=== PATIENT | female | born 1990 ===

== ENCOUNTER 2017-08-11 00:02 | Inpatient (IN) | payer MEDICAID, OTHER ==
[2017-08-11] MEDS ORDERED: Sodium Chloride 0.9% 1,000 ML IV STA (00:48)
--- NOTE | 2017-08-11 01:11 | ED PDOC ---
HPI: Abdomen Time Seen by Provider: 08/11/17 00:27 Chief Complaint (Nursing): Abdominal Pain Chief Complaint (Provider): abdominal pain History Per: Patient History/Exam Limitations: no limitations Onset/Duration Of Symptoms: Hrs Current Symptoms Are (Timing): Still Present Location Of Pain/Discomfort: Epigastric Quality Of Discomfort: Burning, "Pain" Additional History Per: Patient Additional Complaint(s): 27 y/o female presents with epigastric abdominal pain x 14 hours. Patient states she took two Ibuprofem 600mg tablets in the morning for chronic back pain on an empty stomach, and shortly after smita developed "burning" pain to upper abdomen, with associated multiple nonbloody/nonbilious vomiting episodes. Denies fever, chest pain, shortness of breath, palpitations, changes in bowel movements, urinary symptoms. Past Medical History Reviewed: Historical Data, Nursing Documentation, Vital Signs Vital Signs: Last Vital Signs Temp 98.5 F 08/11/17 00:11 Pulse 84 08/11/17 00:11 Resp 16 08/11/17 00:11 BP 135/87 08/11/17 00:11 Pulse Ox 98 08/11/17 04:59 - Medical History PMH: No Chronic Diseases - Surgical History Surgical History: Appendectomy, - Family History Family History: States: No Known Family Hx - Living Arrangements Living Arrangements: With Family - Home Medications Home Medications: Ambulatory Orders Medication Instructions Recorded Ondansetron ODT [Zofran ODT] 4 mg PO QID #20 odt 05/27/16 - Allergies Allergies/Adverse Reactions: Allergies Allergy/AdvReac Type Severity Reaction Status Date / Time No Known Allergies Allergy Verified 05/27/16 12:57 Review of Systems ROS Statement: Except As Marked, All Systems Reviewed And Found Negative Gastrointestinal: Positive for: Nausea, Vomiting, Abdominal Pain Physical Exam - Reviewed Nursing Documentation Reviewed: Yes Vital Signs Reviewed: Yes - Physical Exam Appears: Positive for: Well, Non-toxic, No Acute Distress Head Exam: Positive for: ATRAUMATIC, NORMAL INSPECTION, NORMOCEPHALIC Skin: Positive for: Normal Color Eye Exam: Positive for: Normal appearance ENT: Positive for: Normal ENT Inspection Cardiovascular/Chest: Positive for: Regular Rate, Rhythm Respiratory: Positive for: Normal Breath Sounds Gastrointestinal/Abdominal: Positive for: Bowel Sounds, Soft, Tenderness ( epigastric abdominal pain) Back: Positive for: Normal Inspection Extremity: Positive for: Normal ROM Neurologic/Psych: Positive for: Alert, Oriented - Laboratory Results Result Diagrams: 08/11/17 01:25 08/11/17 01:25 - ECG O2 Sat by Pulse Oximetry: 98 - Progress ED Course And Treament: labs, IV fluids, IV pepcid, IV zofran On re-eval, patient still with nausea, pain. Found to have markedly elevated LFTs, CT abd/pelvis ordered Patient unable to tolerate PO contrast, vomited. IV reglan ordered Disposition - Clinical Impression Clinical Impression: Abdominal pain, Elevated liver function tests - Disposition Disposition: Transfer of Care Disposition Time: 06:00 Condition: STABLE Forms: [employer] ([place]ican) Patient Signed Over To: Hernandez Ho Handoff Comments: pending CT
[2017-08-11 02:06] LABS: BASO % 0.2 % (0.0-2.0); EOS % 0.3 % (0.0-4.0); LYMPH # 0.9 K/uL (1.0-4.3); LYMPH % 15.4 % (20.0-40.0); MEAN CELL VOLUME 79.6 fl (81.0-99.0); MEAN CORPUSCULAR HEMOGLOBIN 25.7 pg (27.0-31.0); MEAN CORPUSCULAR HGB CONC 32.3 g/dL (33.0-37.0); MEAN PLATELET VOLUME 8.2 fl (7.2-11.7); MONO # 0.2 K/uL (0.0-0.8); NEUT # 4.7 K/uL (1.8-7.0); NEUT % 80.1 % (50.0-75.0); RBC 4.65 Mil/uL (3.80-5.20); RED CELL DISTRIBUTION WIDTH 14.9 % (11.5-14.5); WHITE BLOOD COUNT 5.9 K/uL (4.8-10.8)
[2017-08-11 02:11] LABS: SQUAMOUS EPITHIAL 6 /hpf (0-5); URINE BACTERIA RARE (<OCC); URINE BILIRUBIN NEGATIVE (NEGATIVE); URINE BLOOD SMALL (NEGATIVE); URINE CLARITY SLIGHTY-CLOUDY (Clear); URINE COLOR AMBER (YELLOW); URINE GLUCOSE (UA) NEG (Normal); URINE LEUKOCYTE ESTERASE NEG Leu/uL (Negative); URINE NITRATE NEGATIVE (NEGATIVE); URINE PROTEIN 100 mg/dL (NEGATIVE)
[2017-08-11 02:28] LABS: ALB/GLOB RATIO 1.4 (1.0-2.1); ALBUMIN 4.8 g/dL (3.5-5.0); BLOOD UREA NITROGEN 18 mg/dl (7-17); CALCIUM 9.6 mg/dL (8.4-10.2); GFR AFRICAN-AMERICAN > 60; GFR NON-AFRICAN AMERICAN > 60; LIPASE 159 U/L (23-300)
[2017-08-11 02:45] LABS: ALT/SGPT 1357 U/L (9-52)
[2017-08-11] MEDS ORDERED: Iohexol 240 (50 ml) PO ONE (03:01)
[2017-08-11 03:03] LABS: AST/SGOT 1791 U/L (14-36)
[2017-08-11] MEDS ORDERED: Iohexol 240 (50 ml) ONE (03:25)
[2017-08-11 04:13] LABS: ACETAMINOPHEN < 10.0 ug/ml (10.0-30.0); SALICYLATE < 1.0 mg/dl
[2017-08-11] MEDS ORDERED: Iohexol 300 100 ML IJ ONE (05:26)
[2017-08-11] MEDS ORDERED: Sodium Chloride 0.9% 50 ML IV ONE (05:27)
--- NOTE | 2017-08-11 06:29 | ED PDOC ---
- Laboratory Results Result Diagrams: 08/11/17 01:25 08/11/17 01:25 - ECG O2 Sat by Pulse Oximetry: 98 (RA) Pulse Ox Interpretation: Normal Medical Decision Making Medical Decision Making: Time: 06:00 Patient is endorsed to me by Christie Andrade PA-C. Pending CT scan and reevaluation Time: 6:45 CT Abd/Pelvis: FINDINGS: Lower thorax: No acute findings. ABDOMEN: Liver: Mild intrahepatic biliary ductal dilatation No mass. Gallbladder and bile ducts: Distended and mildly thickened with calcified gallstone at the fundus.. Mild ductal dilation. No definite distal calculi observed. Pancreas: Unremarkable. No mass. No ductal dilation. Spleen: Unremarkable. No splenomegaly. Adrenals: Unremarkable. No mass. Kidneys and ureters: Right renal cyst No solid mass. No hydronephrosis. Stomach and bowel: Unremarkable. No obstruction. No mucosal thickening. Appendix: No findings to suggest acute appendicitis. PELVIS: Bladder: Unremarkable. No mass. Reproductive: Unremarkable as visualized. ABDOMEN and PELVIS: Intraperitoneal space: Trace cul-de-sac fluid No free air. No significant fluid collection. Bones/joints: No acute fracture. No dislocation. Soft tissues: Unremarkable. Vasculature: Unremarkable. No abdominal aortic aneurysm. Lymph nodes: Unremarkable. No enlarged lymph nodes. IMPRESSION: Findings suspect for cholecystitis. Further evaluation with right upper quadrant ultrasound recommended Mild biliary ductal dilatation without definite distal common bile duct calculi Time: 6:50 --Started patient on IV zosyn and ordered ultrasound --Paged Dr. Mercedes, surgery on-call, and Dr. Braxton, medicine on-call. Time: 6:[address] Braxton, who requests MRCP ordered. Patient will be admitted inpatient to Med/Surg for cholecystitis. Time: 0700 --Discussed case with surgical garment assembly supervisor. Scribe Attestation: Documented by Amanda Pitts, acting as a scribe for Hernandez Ho MD Provider Scribe Attestation: All medical record entries made by the Scribe were at my direction and personally dictated by me. I have reviewed the chart and agree that the record accurately reflects my personal performance of the history, physical exam, medical decision making, and the department course for this patient. I have also personally directed, reviewed, and agree with the discharge instructions and disposition. Disposition Counseled Patient/Family Regarding: Studies Performed - Clinical Impression Clinical Impression: Abdominal pain, Elevated liver function tests, Cholecystitis - POA Present On Arrival: None - Disposition Disposition: Admitted as In-Patient Disposition Time: 06:30 Condition: STABLE
[2017-08-11] MEDS ORDERED: Piperacillin/Tazobact 4.5 GM in Sodium Chloride 0.9% 100 ML IVPB STA (06:48)
--- NOTE | 2017-08-11 07:39 | CP.PCM.CON ---
History of Present Illness - History of Present Illness History of Present Illness: General surgery consult note for Dr. Sean Gould, PGY-1 Pt S & E at bedside. 27F w/no sig PMH consulted for abdominal pain x 1 day. Pt reports sudden onset of epigastric pain yesterday at 10am, tried Ibuprofen with minimal relief. Pain was non radiating, constant, "cramping"/"tight"- now resolved with pain medications. Admits to back pain (chronic since childbirth), emesis after eating (nbnb)- inability to tolerate food, nausea. Denies F & C, other complaints. PMH: Denies PSH: Appendectomy, All: NKDA SH: Denies tobacco, ETOH or illicit drug use. Delivered baby 2 mos ago Review of Systems - Review of Systems All systems: reviewed and no additional remarkable complaints except - Constitutional Constitutional: absent: Chills, Fever - EENT Ears: absent: Dizziness Nose/Mouth/Throat: absent: Sore Throat - Cardiovascular Cardiovascular: absent: Chest Pain - Gastrointestinal Gastrointestinal: Abdominal Pain, Nausea, Vomiting. absent: Constipation, Diarrhea - Musculoskeletal Musculoskeletal: Back Pain (chronic) - Integumentary Integumentary: absent: Rash - Neurological Neurological: absent: Headaches - Psychiatric Psychiatric: Change in Appetite Past Patient History - Past Social History Smoking Status: Heavy Smoker > 10 Cigarettes Daily - PSYCHIATRIC Hx Substance Use: No - SURGICAL HISTORY Hx Appendectomy: Yes Meds Allergies/Adverse Reactions: Allergies Allergy/AdvReac Type Severity Reaction Status Date / Time No Known Allergies Allergy Verified 05/27/16 12:57 - Medications Medications: Current Medications Piperacillin Sod/Tazobactam (Sod 4.5 gm/ Sodium Chloride) 100 mls @ 100 mls/hr IVPB STAT STA PRN Reason: Protocol Stop: 08/11/17 07:47 Last Admin: 08/11/17 07:23 Dose: 100 mls/hr Lactated Ringer's (Lactated Ringer's) 1,000 mls @ 90 mls/hr IV .[id number] [facility] Ondansetron HCl (Zofran Inj) 4 mg IVP Q6 PRN PRN Reason: Nausea/Vomiting Pantoprazole Sodium (Protonix Inj) 40 mg IVP DAILY [facility] Physical Exam - Constitutional Appears: Non-toxic, No Acute Distress - Head Exam Head Exam: ATRAUMATIC, NORMAL INSPECTION, NORMOCEPHALIC - Eye Exam Eye Exam: EOMI, Normal appearance - ENT Exam ENT Exam: Mucous Membranes Moist, Normal Exam - Neck Exam Neck exam: Positive for: Full Rom, Normal Inspection - Respiratory Exam Respiratory Exam: NORMAL BREATHING PATTERN - Cardiovascular Exam Cardiovascular Exam: REGULAR RHYTHM, +S1, +S2 - GI/Abdominal Exam GI & Abdominal Exam: Soft, Tenderness (epigastric). absent: Distended, Firm, Guarding, Rebound, Rigid - Extremities Exam Extremities exam: Positive for: normal inspection - Neurological Exam Neurological exam: Alert, CN II-XII Intact, Oriented x3 - Psychiatric Exam Psychiatric exam: Normal Affect, Normal Mood - Skin Skin Exam: Dry, Intact, Normal Color, Warm Additional comments: well healed linear transverse low abdominal scar Results - Vital Signs Recent Vital Signs: Last Vital Signs Temp 98.6 F 08/11/17 06:59 Pulse 90 08/11/17 06:59 Resp 16 08/11/17 06:59 BP 121/72 08/11/17 06:59 Pulse Ox 98 08/11/17 07:08 - Labs Result Diagrams: 08/11/17 01:25 08/11/17 01:25 Labs: Laboratory Results - last 24 hr 08/11/17 08/11/17 08/11/17 01:25 01:25 01:25 WBC 5.9 RBC 4.65 Hgb 12.0 Hct 37.0 MCV 79.6 L D MCH 25.7 L MCHC 32.3 L RDW 14.9 H Plt Count 271 MPV 8.2 Neut % (Auto) 80.1 H Lymph % (Auto) 15.[address] [place] % (Auto) 4.0 Eos % (Auto) 0.3 Baso % (Auto) 0.2 Neut # 4.7 Lymph # 0.[address] [place] # 0.2 Eos # 0.0 Baso # 0.0 Sodium 145 Potassium 3.7 Chloride 106 Carbon Dioxide 28 Anion Gap 15 BUN 18 H Creatinine 0.5 L Est GFR ( Amer) > 60 Est GFR (Non-Af Amer) > 60 Random Glucose 86 Calcium 9.6 Total Bilirubin 1.9 H AST 1791 H ALT 1357 H Alkaline Phosphatase 247 H Total Protein 8.2 Albumin 4.8 Globulin 3.4 Albumin/Globulin Ratio 1.4 Lipase 159 Urine Color Cathie Urine Clarity Slighty-cloudy Urine pH 6.0 Ur Specific [place] 1.030 Urine Protein 100 Urine Glucose (UA) Neg Urine Ketones 20 Urine Blood Small Urine Nitrate Negative Urine Bilirubin Negative Urine Urobilinogen 4.0 H Ur Leukocyte Esterase Neg Urine RBC (Auto) 5 H Urine Microscopic WBC 4 Ur Squamous Epith Cells 6 H Urine Bacteria Rare Salicylates Acetaminophen 08/11/17 03:25 WBC RBC Hgb Hct MCV MCH MCHC RDW Plt Count MPV Neut % (Auto) Lymph % (Auto) [place] % (Auto) Eos % (Auto) Baso % (Auto) Neut # Lymph # [place] # Eos # Baso # Sodium Potassium Chloride Carbon Dioxide Anion Gap BUN Creatinine Est GFR ( Amer) Est GFR (Non-Af Amer) Random Glucose Calcium Total Bilirubin AST ALT Alkaline Phosphatase Total Protein Albumin Globulin Albumin/Globulin Ratio Lipase Urine Color Urine Clarity Urine pH Ur Specific [place] Urine Protein Urine Glucose (UA) Urine Ketones Urine Blood Urine Nitrate Urine Bilirubin Urine Urobilinogen Ur Leukocyte Esterase Urine RBC (Auto) Urine Microscopic WBC Ur Squamous Epith Cells Urine Bacteria Salicylates < 1.0 Acetaminophen < 10.0 L Assessment & Plan - Assessment and Plan (Free Text) Assessment: 27F w/no sig PMH consulted for abdominal pain Plan: NPO Pain control IVF Anti-emetic Trend LFTs FU MRCP for CBD dilatation Recommend GI consult Alternative causes of transaminitis should be evaluated Further recs pending imaging studies Will JAYLEN Gould, PGY-1 - Date & Time Date: 08/11/17 Time: 07:43
[2017-08-11] MEDS: Morphine 4 MG/ML VIAL IVP PRN ×2 (10:20→18:42)
[2017-08-11] MEDS: Lactated Ringer's 1,000 ML IV SCH ×3 (10:21→21:17)
--- NOTE | 2017-08-11 10:24 | US ---
HISTORY: cholecystitis COMPARISON: None. TECHNIQUE: Sonographic evaluation of the right upper quadrant of the abdomen. FINDINGS: LIVER: Measures 12.0 cm in length. Normal echogenicity of the liver parenchyma. No mass. No intrahepatic bile duct dilatation. GALLBLADDER: Cholelithiasis and tumefactive sludge with gallbladder wall thickening/edema. Sloughing of the gallbladder wall with appearance of intraluminal membranes (image 101). Sonographic Torres's sign was elicited. COMMON BILE DUCT: Measures 6.2 mm. No stones. No dilatation. PANCREAS: Unremarkable as visualized. No mass. No ductal dilatation. RIGHT KIDNEY: Measures 10.6 x 5.2 x 4.5 cm in length. Normal echogenicity. No calculus, mass, or hydronephrosis. AORTA: No aneurysmal dilatation. IVC: Unremarkable. OTHER FINDINGS: None . IMPRESSION: Findings worrisome for gangrenous cholecystitis. Borderline dilated common bile duct. Findings conveyed to SABINA Allen by Dr. Lee at 10:20 a.m. on 08/11/2017.
--- NOTE | 2017-08-11 10:32 | MRI ---
PROCEDURE: Magnetic Resonance Cholangiopancreatography HISTORY: COMPARISON: Correlation is made to CT scan of the abdomen pelvis performed approximately 2.5 hours prior. TECHNIQUE: Multiplanar, multisequence MR images of the abdomen were obtained, including heavily T2 weighted MRCP images of the biliary system. Rotating maximum intensity projection images of the biliary system were generated. FINDINGS: MRCP: 5 millimeter distal choledocholith causing mild extrahepatic and central intrahepatic biliary ductal dilatation. LIVER: Unremarkable. GALLBLADDER: Distended with dependent cholelithiasis, wall thickening/edema and appearance of intraluminal membranes. SPLEEN: Unremarkable. PANCREAS: Unremarkable. ADRENALS: Unremarkable. KIDNEYS: Unremarkable. AORTA: No aneurysm. ASCITES: None. OTHER FINDINGS: None. IMPRESSION: Findings worrisome for gangrenous cholecystitis. Distal CBD 5 millimeter choledocholithiasis causing mild extrahepatic and central intrahepatic biliary duct dilatation. Findings conveyed to SABINA Allen by Dr. Lee at 10:20 a.m. on 08/11/2017.
--- NOTE | 2017-08-11 10:50 | CT ---
PROCEDURE: CT Abdomen and Pelvis with contrast HISTORY: abd pain, vomiting, elevated LFTs COMPARISON: None. TECHNIQUE: Contrast dose: 85 mL Omnipaque 300 Radiation dose: Total exam DLP = 254 mGy-cm. This CT exam was performed using one or more of the following dose reduction techniques: Automated exposure control, adjustment of the mA and/or kV according to patient size, and/or use of iterative reconstruction technique. FINDINGS: LOWER THORAX: Calcified granuloma in the lingula. LIVER: Unremarkable. Mild intrahepatic biliary ductal dilatation. GALLBLADDER AND BILE DUCTS: Minimal calcified cholelithiasis with gallbladder distention and wall thickening/edema. CBD at upper limits of normal measuring 6 millimeter. PANCREAS: Unremarkable. No gross lesion or ductal dilatation. SPLEEN: Unremarkable. ADRENALS: Unremarkable. No mass. KIDNEYS AND URETERS: Right midpole 1.1 centimeter cyst. No hydronephrosis. No solid mass. VASCULATURE: Unremarkable. No aortic aneurysm. BOWEL: Unremarkable. No obstruction. No gross mural thickening. APPENDIX: Prior appendectomy. PERITONEUM: Unremarkable. No free fluid. No free air. LYMPH NODES: Unremarkable. No enlarged lymph nodes. BLADDER: Unremarkable. REPRODUCTIVE: Unremarkable. BONES: No acute fracture. OTHER FINDINGS: None. IMPRESSION: Minimal calcified cholelithiasis with gallbladder distention wall thickening/edema consistent with acute cholecystitis. CBD prominence and mild central intrahepatic biliary ductal dilatation without radiopaque choledocholithiasis. MRCP can be obtained for further evaluation. Additional findings as above.
--- NOTE | 2017-08-11 11:47 | CP.PCM.HP ---
History of Present Illness - History of Present Illness History of Present Illness: 27 yr old F presented to ED with complaint of severe epigastric pain that started yesterday after she took 600mg of Ibuprofen for back pain. Patient has recent hx of 2 months ago, appendectomy 3 yrs ago and no other significant PMHx. Her epigastric pain was severe, burning and associated with multiple episodes of non-bilious, non-bloody vomiting. Denies fevers, chills, weakness, dizziness, SOB, chest pain or palpitations. Denies hx of blood disorders, GI disease or constipation nor diarrhea. PMD: none ObHx: s/p 2 months ago PMHx: none SurgHx: 2 months ago, appendectomy 3 yrs ago FMHx: non contributory SocHx: former smoker, occasional Etoh, denies drugs Meds: Ibuprofen and Percocet PRN for pain s/p Allergies: NKDA Present on Admission - Present on Admission Any Indicators Present on Admission: No History of DVT/PE: No History of Uncontrolled Diabetes: No Urinary Catheter: No Decubitus Ulcer Present: No Review of Systems - Review of Systems All systems: reviewed and no additional remarkable complaints except (for what is mentioned in the HPI) - Constitutional Constitutional: absent: Chills, Weakness - EENT Eyes: absent: Blurred Vision, Change in Vision Ears: absent: Dizziness Nose/Mouth/Throat: absent: Nasal Congestion, Nasal Discharge - Cardiovascular Cardiovascular: absent: Chest Pain, Palpitations, Syncope - Respiratory Respiratory: absent: Cough, Dyspnea - Gastrointestinal Gastrointestinal: Abdominal Pain (epigastric and umbilical region), Heartburn, Nausea, Vomiting. absent: Constipation, Diarrhea - Genitourinary Genitourinary: absent: Difficulty Urinating, Dysuria - Musculoskeletal Musculoskeletal: absent: Arthralgias - Neurological Neurological: absent: Headaches - Hematologic/Lymphatic Hematologic: absent: Easy Bleeding, Easy Bruising Past Patient History - Past Medical History & Family History Past Medical History?: No - Past Social History Smoking Status: Former Smoker - CARDIAC Hx Cardiac Disorders: No - PULMONARY Hx Respiratory Disorders: No - NEUROLOGICAL Hx Neurological Disorder: No - HEENT Hx HEENT Problems: No - RENAL Hx Chronic Kidney Disease: No - ENDOCRINE/METABOLIC Hx Endocrine Disorders: No - HEMATOLOGICAL/ONCOLOGICAL Hx Blood Disorders: No - INTEGUMENTARY Hx Dermatological Problems: No - MUSCULOSKELETAL/RHEUMATOLOGICAL Hx Falls: No - GENITOURINARY/GYNECOLOGICAL Hx Genitourinary Disorders: No - PSYCHIATRIC Hx Substance Use: No - SURGICAL HISTORY Hx Appendectomy: Yes Hx Section: Yes - ANESTHESIA Hx Anesthesia: Yes Hx Anesthesia Reactions: No Meds Allergies/Adverse Reactions: Allergies Allergy/AdvReac Type Severity Reaction Status Date / Time No Known Allergies Allergy Verified 05/27/16 12:57 Physical Exam - Constitutional Appears: Non-toxic (but appears to have abdominal discomfort) - Head Exam Head Exam: ATRAUMATIC, NORMOCEPHALIC - Eye Exam Eye Exam: EOMI, PERRL - ENT Exam ENT Exam: Mucous Membranes Moist - Neck Exam Neck exam: Positive for: Full Rom - Respiratory Exam Respiratory Exam: Clear to Auscultation Bilateral, NORMAL BREATHING PATTERN - Cardiovascular Exam Cardiovascular Exam: REGULAR RHYTHM, +S1, +S2 - GI/Abdominal Exam GI & Abdominal Exam: Normal Bowel Sounds, Soft, Tenderness (moderate tenederness to palpation in epigastric and umbilical region) - Extremities Exam Extremities exam: Positive for: full ROM. Negative for: pedal edema - Neurological Exam Neurological exam: Alert, CN II-XII Intact, Oriented x3 - Psychiatric Exam Psychiatric exam: Normal Affect, Normal Mood - Skin Skin Exam: Dry, Intact, Normal Color, Warm Results - Vital Signs Recent Vital Signs: Last Vital Signs Temp 98.4 F 08/11/17 09:50 Pulse 77 08/11/17 09:50 Resp 20 08/11/17 09:50 BP 117/77 08/11/17 09:50 Pulse Ox 97 08/11/17 09:50 - Labs Result Diagrams: 08/11/17 01:25 08/11/17 01:25 Labs: Laboratory Results - last 24 hr 08/11/17 08/11/17 08/11/17 01:25 01:25 01:25 WBC 5.9 RBC 4.65 Hgb 12.0 Hct 37.0 MCV 79.6 L D MCH 25.7 L MCHC 32.3 L RDW 14.9 H Plt Count 271 MPV 8.2 Neut % (Auto) 80.1 H Lymph % (Auto) 15.4 L [place] % (Auto) 4.0 Eos % (Auto) 0.3 Baso % (Auto) 0.2 Neut # 4.7 Lymph # 0.9 L [place] # 0.2 Eos # 0.0 Baso # 0.0 Sodium 145 Potassium 3.7 Chloride 106 Carbon Dioxide 28 Anion Gap 15 BUN 18 H Creatinine 0.5 L Est GFR ( Amer) > 60 Est GFR (Non-Af Amer) > 60 Random Glucose 86 Calcium 9.6 Total Bilirubin 1.9 H AST 1791 H ALT 1357 H Alkaline Phosphatase 247 H Total Protein 8.2 Albumin 4.8 Globulin 3.4 Albumin/Globulin Ratio 1.4 Lipase 159 Urine Color Cathie Urine Clarity Slighty-cloudy Urine pH 6.0 Ur Specific [place] 1.030 Urine Protein 100 Urine Glucose (UA) Neg Urine Ketones 20 Urine Blood Small Urine Nitrate Negative Urine Bilirubin Negative Urine Urobilinogen 4.0 H Ur Leukocyte Esterase Neg Urine RBC (Auto) 5 H Urine Microscopic WBC 4 Ur Squamous Epith Cells 6 H Urine Bacteria Rare Salicylates Acetaminophen 08/11/17 03:25 WBC RBC Hgb Hct MCV MCH MCHC RDW Plt Count MPV Neut % (Auto) Lymph % (Auto) [place] % (Auto) Eos % (Auto) Baso % (Auto) Neut # Lymph # [place] # Eos # Baso # Sodium Potassium Chloride Carbon Dioxide Anion Gap BUN Creatinine Est GFR ( Amer) Est GFR (Non-Af Amer) Random Glucose Calcium Total Bilirubin AST ALT Alkaline Phosphatase Total Protein Albumin Globulin Albumin/Globulin Ratio Lipase Urine Color Urine Clarity Urine pH Ur Specific [place] Urine Protein Urine Glucose (UA) Urine Ketones Urine Blood Urine Nitrate Urine Bilirubin Urine Urobilinogen Ur Leukocyte Esterase Urine RBC (Auto) Urine Microscopic WBC Ur Squamous Epith Cells Urine Bacteria Salicylates < 1.0 Acetaminophen < 10.0 L Assessment & Plan - Assessment and Plan (Free Text) Assessment: 27 yr old F with Abd CT findings of and MRCP findings worrisome for gangrenous cholecystitis, and CBD choledocholithiasis, with symptoms of severe abdominal pain and vomiting. 1. Abdominal pain -Abd CT findings of and MRCP findings worrisome for gangrenous cholecystitis, distal CBD 5mm choledocholithiasis causing mild extrahepatic and central intrahepatic biliary dilatation -no leukocytosis, AST 1791, ALT 1357, alk phos 247 -admit to med/surg, NPO, IV fluids, pain management -IV antibiotics -Zosyn 3.375 IV Q6 -GI consult appreciated: will follow recommendations -Surgery consult appreciated 2. DVT prophylaxis -SCD's for now-patient may go for surgery - Date & Time Date: 08/11/17 Time: 11:00
--- NOTE | 2017-08-11 13:03 | CP.PCM.CON ---
<Sohan Curtis - Last Filed: 08/11/17 15:33> History of Present Illness - History of Present Illness History of Present Illness: PGY4 Initial GI Consult Mckayla Kamara is a 27F w/ hx of recent complicated by preeclampsia who presents withe epigastric abd pain. Pt states that he pain was sudden and was initially tolerate. She then notes it progressed to sharp. It was non- radiating and she graded it a 10 out of 10. She also started to have diaphoresis and chills but denied any fever. She also had nausea and vomiting. She then proceeded to the ER for further evaluation. Her was complicated by preeclampsia and she gave 3 months ago via . She had an MRCP which revealed a possible gangrenous gallbladder and CBD stone. Pt states that her pain has significantly improved since admission. Denies any new fever, chills, or diaphoreisis. Denies any jaundice or scleral icturus. Denies any previous hx of liver problems or hepatitis. PMHx: none SurgHx: 2 months ago, appendectomy 3 yrs ago FMHx: non contributory SocHx: former smoker, occasional Etoh, denies drugs Endo Hx: None ROS: 12-point ROS conducted neg other than above Past Patient History - Past Medical History & Family History Past Medical History?: No - Past Social History Smoking Status: Former Smoker - CARDIAC Hx Cardiac Disorders: No - PULMONARY Hx Respiratory Disorders: No - NEUROLOGICAL Hx Neurological Disorder: No - HEENT Hx HEENT Problems: No - RENAL Hx Chronic Kidney Disease: No - ENDOCRINE/METABOLIC Hx Endocrine Disorders: No - HEMATOLOGICAL/ONCOLOGICAL Hx Blood Disorders: No - INTEGUMENTARY Hx Dermatological Problems: No - MUSCULOSKELETAL/RHEUMATOLOGICAL Hx Falls: No - GENITOURINARY/GYNECOLOGICAL Hx Genitourinary Disorders: No - PSYCHIATRIC Hx Substance Use: No - SURGICAL HISTORY Hx Appendectomy: Yes Hx Section: Yes - ANESTHESIA Hx Anesthesia: Yes Hx Anesthesia Reactions: No Meds Allergies/Adverse Reactions: Allergies Allergy/AdvReac Type Severity Reaction Status Date / Time No Known Allergies Allergy Verified 05/27/16 12:57 - Medications Medications: Current Medications Lactated Ringer's (Lactated Ringer's) 1,000 mls @ 90 mls/hr IV .Q11H7M [facility] Last Admin: 08/11/17 10:21 Dose: 90 mls/hr Piperacillin Sod/Tazobactam (Sod 3.375 gm/ Sodium Chloride) 100 mls @ 100 mls/ hr IVPB Q6 [facility] PRN Reason: Protocol Morphine Sulfate (Morphine) 2 mg IVP Q6 PRN PRN Reason: Pain, moderate (4-7) Last Admin: 08/11/17 10:20 Dose: 2 mg Ondansetron HCl (Zofran Inj) 4 mg IVP Q6 PRN PRN Reason: Nausea/Vomiting Pantoprazole Sodium (Protonix Inj) 40 mg IVP DAILY [facility] Physical Exam - Constitutional Appears: Well, No Acute Distress - Head Exam Head Exam: ATRAUMATIC, NORMOCEPHALIC - Eye Exam Eye Exam: Normal appearance - ENT Exam ENT Exam: Mucous Membranes Moist - Neck Exam Neck exam: Positive for: Normal Inspection - Respiratory Exam Respiratory Exam: Clear to Auscultation Bilateral, NORMAL BREATHING PATTERN. absent: Rales, Rhonchi, Wheezes, Respiratory Distress - Cardiovascular Exam Cardiovascular Exam: REGULAR RHYTHM, +S1, +S2 - GI/Abdominal Exam GI & Abdominal Exam: Normal Bowel Sounds, Soft. absent: Distended, Guarding, Organomegaly, Rigid Additional comments: scar at bikini line, stretch lr - Extremities Exam Extremities exam: Negative for: joint swelling, pedal edema - Neurological Exam Neurological exam: Alert, Oriented x3 - Psychiatric Exam Psychiatric exam: Normal Affect, Normal Mood - Skin Skin Exam: Dry, Intact, Normal Color, Warm Results - Vital Signs Recent Vital Signs: Last Vital Signs Temp 98.4 F 08/11/17 09:50 Pulse 77 08/11/17 09:50 Resp 20 08/11/17 09:50 BP 117/77 08/11/17 09:50 Pulse Ox 97 08/11/17 09:50 - Labs Result Diagrams: 08/11/17 01:25 08/11/17 01:25 Labs: Laboratory Results - last 24 hr 08/11/17 08/11/17 08/11/17 01:25 01:25 01:25 WBC 5.9 RBC 4.65 Hgb 12.0 Hct 37.0 MCV 79.6 L D MCH 25.7 L MCHC 32.3 L RDW 14.9 H Plt Count 271 MPV 8.2 Neut % (Auto) 80.1 H Lymph % (Auto) 15.4 L Wheeler % (Auto) 4.0 Eos % (Auto) 0.3 Baso % (Auto) 0.2 Neut # 4.7 Lymph # 0.9 L Wheeler # 0.2 Eos # 0.0 Baso # 0.0 Sodium 145 Potassium 3.7 Chloride 106 Carbon Dioxide 28 Anion Gap 15 BUN 18 H Creatinine 0.5 L Est GFR ( Amer) > 60 Est GFR (Non-Af Amer) > 60 Random Glucose 86 Calcium 9.6 Total Bilirubin 1.9 H AST 1791 H ALT 1357 H Alkaline Phosphatase 247 H Total Protein 8.2 Albumin 4.8 Globulin 3.4 Albumin/Globulin Ratio 1.4 Lipase 159 Urine Color Cathie Urine Clarity Slighty-cloudy Urine pH 6.0 Ur Specific [place] 1.030 Urine Protein 100 Urine Glucose (UA) Neg Urine Ketones 20 Urine Blood Small Urine Nitrate Negative Urine Bilirubin Negative Urine Urobilinogen 4.0 H Ur Leukocyte Esterase Neg Urine RBC (Auto) 5 H Urine Microscopic WBC 4 Ur Squamous Epith Cells 6 H Urine Bacteria Rare Salicylates Acetaminophen 08/11/17 03:25 WBC RBC Hgb Hct MCV MCH MCHC RDW Plt Count MPV Neut % (Auto) Lymph % (Auto) Wheeler % (Auto) Eos % (Auto) Baso % (Auto) Neut # Lymph # Wheeler # Eos # Baso # Sodium Potassium Chloride Carbon Dioxide Anion Gap BUN Creatinine Est GFR ( Amer) Est GFR (Non-Af Amer) Random Glucose Calcium Total Bilirubin AST ALT Alkaline Phosphatase Total Protein Albumin Globulin Albumin/Globulin Ratio Lipase Urine Color Urine Clarity Urine pH Ur Specific [place] Urine Protein Urine Glucose (UA) Urine Ketones Urine Blood Urine Nitrate Urine Bilirubin Urine Urobilinogen Ur Leukocyte Esterase Urine RBC (Auto) Urine Microscopic WBC Ur Squamous Epith Cells Urine Bacteria Salicylates < 1.0 Acetaminophen < 10.0 L Assessment & Plan - Assessment and Plan (Free Text) Assessment: Mckayla Kamara is a 27F s/p recent who presents to the ER with abd pain Possible Gangrenous Cholecystitis Choledocolithiasis Elevated LFTs likely 2/2 above Plan: -can start clears for now from GI standpoint -NPO after midnight -Acute Hep Panel -ERCP tomorrow AM -continue Zosyn -Surgery on board, will likely undergo lap patel -continue to trend LFTs -consent in chart D/W Dr. Joy <Rick Joy MD - Last Filed: 08/11/17 16:35> Meds - Medications Medications: Current Medications Lactated Ringer's (Lactated Ringer's) 1,000 mls @ 90 mls/hr IV .Q11H7M [facility] Last Admin: 08/11/17 10:21 Dose: 90 mls/hr Piperacillin Sod/Tazobactam (Sod 3.375 gm/ Sodium Chloride) 100 mls @ 100 mls/ hr IVPB Q6 [facility] PRN Reason: Protocol Last Admin: 08/11/17 16:27 Dose: 100 mls/hr Morphine Sulfate (Morphine) 2 mg IVP Q6 PRN PRN Reason: Pain, moderate (4-7) Last Admin: 08/11/17 10:20 Dose: 2 mg Ondansetron HCl (Zofran Inj) 4 mg IVP Q6 PRN PRN Reason: Nausea/Vomiting Last Admin: 08/11/17 14:00 Dose: 4 mg Pantoprazole Sodium (Protonix Inj) 40 mg IVP DAILY [facility] Last Admin: 08/11/17 14:00 Dose: 40 mg Results - Vital Signs Recent Vital Signs: Last Vital Signs Temp 98.4 F 08/11/17 16:19 Pulse 88 08/11/17 16:19 Resp 18 08/11/17 16:19 BP 117/74 08/11/17 16:19 Pulse Ox 98 08/11/17 16:19 - Labs Result Diagrams: 08/11/17 01:25 08/11/17 01:25 Labs: Laboratory Results - last 24 hr 08/11/17 08/11/17 08/11/17 01:25 01:25 01:25 WBC 5.9 RBC 4.65 Hgb 12.0 Hct 37.0 MCV 79.6 L D MCH 25.7 L MCHC 32.3 L RDW 14.9 H Plt Count 271 MPV 8.2 Neut % (Auto) 80.1 H Lymph % (Auto) 15.4 L Wheeler % (Auto) 4.0 Eos % (Auto) 0.3 Baso % (Auto) 0.2 Neut # 4.7 Lymph # 0.9 L Wheeler # 0.2 Eos # 0.0 Baso # 0.0 Sodium 145 Potassium 3.7 Chloride 106 Carbon Dioxide 28 Anion Gap 15 BUN 18 H Creatinine 0.5 L Est GFR ( Amer) > 60 Est GFR (Non-Af Amer) > 60 Random Glucose 86 Calcium 9.6 Total Bilirubin 1.9 H AST 1791 H ALT 1357 H Alkaline Phosphatase 247 H Total Protein 8.2 Albumin 4.8 Globulin 3.4 Albumin/Globulin Ratio 1.4 Lipase 159 Urine Color Cathie Urine Clarity Slighty-cloudy Urine pH 6.0 Ur Specific [place] 1.030 Urine Protein 100 Urine Glucose (UA) Neg Urine Ketones 20 Urine Blood Small Urine Nitrate Negative Urine Bilirubin Negative Urine Urobilinogen 4.0 H Ur Leukocyte Esterase Neg Urine RBC (Auto) 5 H Urine Microscopic WBC 4 Ur Squamous Epith Cells 6 H Urine Bacteria Rare Salicylates Acetaminophen 08/11/17 03:25 WBC RBC Hgb Hct MCV MCH MCHC RDW Plt Count MPV Neut % (Auto) Lymph % (Auto) Wheeler % (Auto) Eos % (Auto) Baso % (Auto) Neut # Lymph # Wheeler # Eos # Baso # Sodium Potassium Chloride Carbon Dioxide Anion Gap BUN Creatinine Est GFR ( Amer) Est GFR (Non-Af Amer) Random Glucose Calcium Total Bilirubin AST ALT Alkaline Phosphatase Total Protein Albumin Globulin Albumin/Globulin Ratio Lipase Urine Color Urine Clarity Urine pH Ur Specific [place] Urine Protein Urine Glucose (UA) Urine Ketones Urine Blood Urine Nitrate Urine Bilirubin Urine Urobilinogen Ur Leukocyte Esterase Urine RBC (Auto) Urine Microscopic WBC Ur Squamous Epith Cells Urine Bacteria Salicylates < 1.0 Acetaminophen < 10.0 L Attending/Attestation - Attestation I have personally seen and examined this patient.: Yes I have fully participated in the care of the patient.: Yes I have reviewed all pertinent clinical information: Yes Notes (Text): 08/11/17 16:33 Patient seen with GI fellow at bedside. This is a 27 yr old F 12 weeks post A2 admitted with RUQ pain found to have choledocholithiasis. Will send hepatitis panel to complete work up. Elective ERCP scheduled for am with interventional GI. NPO past midnight. Can get clear liquid diet today. trend daily LFT and fever curve. Discussed with surgical service. Will follow
[2017-08-11] MEDS: Piperacillin/Tazobact 3.375 GM in Sodium Chloride 0.9% 100 ML IVPB SCH ×2 (16:27→21:14)
[2017-08-11] MEDS ORDERED: Morphine 4 MG/ML VIAL IVP STA (21:32)
[2017-08-12] MEDS ORDERED: Morphine 4 MG/ML VIAL IVP SCH (01:00)
[2017-08-12] MEDS: Piperacillin/Tazobact 3.375 GM in Sodium Chloride 0.9% 100 ML IVPB SCH ×4 (04:58→21:26)
[2017-08-12] MEDS ORDERED: Succinylcholine 200 mg/10 ml Inj IV ONE (07:03)
[2017-08-12] MEDS ORDERED: Phenylephrine 10 mg/ml Inj ONE (07:03)
--- NOTE | 2017-08-12 07:20 | CP.PCM.PN ---
Subjective - Date & Time of Evaluation Date of Evaluation: 08/12/17 Time of Evaluation: 07:18 - Subjective Subjective: General Surgery: Dr Mercedes Pt S&E. Resting comfortably. Pt reports single episode of intense pain following liquids last night, alleviated by meds. Otherwise has intermittent nausea. Denies fevers, chills, shortness of breath. Complaining of back pain, but from previous injuries not related to referred pain. Plan for ERCP this morning with lap patel to follow either this afternoon vs tomorrow. Pt expresses understanding of the plan Objective - Vital Signs/Intake and Output Vital Signs (last 24 hours): Temp Pulse Resp BP Pulse Ox 98.3 F 77 19 118/71 98 08/12/17 00:08 08/12/17 00:08 08/12/17 00:08 08/12/17 00:08 08/12/17 04:40 - Medications Medications: Current Medications Lactated Ringer's (Lactated Ringer's) 1,000 mls @ 90 mls/hr IV .Q11H7M [facility] Last Admin: 08/11/17 21:17 Dose: 90 mls/hr Piperacillin Sod/Tazobactam (Sod 3.375 gm/ Sodium Chloride) 100 mls @ 100 mls/ hr IVPB Q6 [facility] PRN Reason: Protocol Last Admin: 08/12/17 04:58 Dose: 100 mls/hr Morphine Sulfate (Morphine) 2 mg IVP Q4 PRN PRN Reason: Pain, moderate (4-7) Ondansetron HCl (Zofran Inj) 4 mg IVP Q6 PRN PRN Reason: Nausea/Vomiting Last Admin: 08/11/17 14:00 Dose: 4 mg Pantoprazole Sodium (Protonix Inj) 40 mg IVP DAILY [facility] Last Admin: 08/11/17 14:00 Dose: 40 mg - Labs Labs: 08/11/17 01:25 08/11/17 01:25 - Constitutional Appears: Non-toxic, No Acute Distress - Eye Exam Eye Exam: absent: Scleral icterus - ENT Exam ENT Exam: Mucous Membranes Dry - Respiratory Exam Respiratory Exam: absent: Accessory Muscle Use, Respiratory Distress - Cardiovascular Exam Cardiovascular Exam: REGULAR RHYTHM. absent: Tachycardia - GI/Abdominal Exam GI & Abdominal Exam: Soft, Tenderness (epigastric). absent: Distended, Firm, Guarding - Psychiatric Exam Psychiatric exam: Normal Affect, Normal Mood - Skin Skin Exam: Dry Assessment and Plan - Assessment and Plan (Free Text) Assessment: 27F w/ choledocholithiasis and cholecystitis Plan: ERCP this AM - will follow results lap patel either this afternoon or more likely tomorrow will d/w Dr Mago Bhardwaj, PGY3
[2017-08-12] MEDS ORDERED: Iohexol 240 (50 ml) ONE (07:36)
[2017-08-12] MEDS ORDERED: Glucagon Recombinant 1 mg Inj ONE (07:37)
[2017-08-12] MEDS ORDERED: Midazolam 2 MG/2 ML VIAL ONE (07:40)
[2017-08-12] MEDS ORDERED: Propofol 10 mg/ml Inj (20 ML) ONE (07:41)
[2017-08-12] MEDS: Morphine 4 MG/ML VIAL IVP PRN (07:41)
[2017-08-12] MEDS ORDERED: Lidocaine 2% MPF (5 ml) Inj ONE (07:41)
[2017-08-12] MEDS ORDERED: Lactated Ringer's 1,000 ML IV ONE ×3 (08:06→08:45)
[2017-08-12] MEDS ORDERED: Indomethacin 50 MG Suppository PR ONE (08:07)
[2017-08-12] MEDS ORDERED: Lactated Ringer's 1,000 ML IV SCH (08:15)
[2017-08-12] MEDS ORDERED: Sterile Water 10 ML IV ONE (11:22)
--- NOTE | 2017-08-12 15:17 | CP.PCM.PN ---
Subjective - Date & Time of Evaluation Date of Evaluation: 08/12/17 Time of Evaluation: 07:05 - Subjective Subjective: Patient seen and examined at bedside with attending- Dr. Pace. Reports she has nausea, abdominal pain and overall malaise. Denies chest pain, SOB, weakness or dizziness. Objective - Vital Signs/Intake and Output Vital Signs (last 24 hours): Temp Pulse Resp BP Pulse Ox 97.6 F 70 14 134/79 100 08/12/17 08:55 08/12/17 08:55 08/12/17 08:55 08/12/17 08:55 08/12/17 08:55 Intake and Output: 08/12/17 08/12/17 06:59 18:59 Intake Total 2200 Balance 2200 - Medications Medications: Current Medications Lactated Ringer's (Lactated Ringer's) 1,000 mls @ 90 mls/hr IV .Q11H7M [facility] Last Admin: 08/11/17 21:17 Dose: 90 mls/hr Piperacillin Sod/Tazobactam (Sod 3.375 gm/ Sodium Chloride) 100 mls @ 100 mls/ hr IVPB Q6 [facility] PRN Reason: Protocol Last Admin: 08/12/17 11:25 Dose: 100 mls/hr Lactated Ringer's (Lactated Ringer's) 1,000 mls @ 999 mls/hr IV .Q1H1M [facility] Dextrose/Lactated Ringer's (Dextrose 5%/Lactated Ringer's) 1,000 mls @ 125 mls/ hr IV .Q8H [facility] Stop: 08/13/17 15:13 Morphine Sulfate (Morphine) 2 mg IVP Q4 PRN PRN Reason: Pain, moderate (4-7) Last Admin: 08/12/17 07:41 Dose: 2 mg Ondansetron HCl (Zofran Inj) 4 mg IVP Q4 PRN PRN Reason: Nausea/Vomiting Pantoprazole Sodium (Protonix Inj) 40 mg IVP DAILY [facility] Last Admin: 08/12/17 11:26 Dose: 40 mg - Labs Labs: 08/11/17 01:25 08/11/17 01:25 - Constitutional Appears: Other (ill) - Head Exam Head Exam: ATRAUMATIC, NORMOCEPHALIC - Eye Exam Eye Exam: EOMI - ENT Exam ENT Exam: Mucous Membranes Moist - Neck Exam Neck Exam: Full ROM - Respiratory Exam Respiratory Exam: Clear to Ausculation Bilateral, NORMAL BREATHING PATTERN - Cardiovascular Exam Cardiovascular Exam: REGULAR RHYTHM, +S1, +S2 - GI/Abdominal Exam GI & Abdominal Exam: Soft, Tenderness - Extremities Exam Extremities Exam: Full ROM. absent: Pedal Edema - Neurological Exam Neurological Exam: Alert, Awake, CN II-XII Intact, Oriented x3 - Psychiatric Exam Psychiatric exam: Normal Affect, Normal Mood - Skin Skin Exam: Dry, Warm Assessment and Plan - Assessment and Plan (Free Text) Assessment: 27 yr old F admitted for Abd CT and MRCP findings worrisome for gangrenous cholecystitis, and CBD choledocholithiasis now s/p ERCP with sphincterotomy and extraction of CBD stone and sludge/pus. 1. Gangrenous cholecystitis and choledocholithiasis -s/p ERCP with sphincterotomy and extraction of CBD stone and sludge/pus. -Abd CT findings of and MRCP findings worrisome for gangrenous cholecystitis, distal CBD 5mm choledocholithiasis causing mild extrahepatic and central intrahepatic biliary dilatation -no leukocytosis, AST 1791, ALT 1357, alk phos 247 -liquid diet, IV fluids, Pantoprazole IV, Zofran IV PRN, pain management -IV antibiotics -Zosyn 3.375 IV Q6 -GI consult appreciated: will follow recommendations: watch for pancreatitis, bleeding, perforation and cholangitis -Surgery consult appreciated: will follow recommendations 2. DVT prophylaxis -Lovenox 40mg SC QD -SCD's PRN
[2017-08-12] MEDS: Dextrose 5%/Lactated Ringer's 1,000 ML IV SCH (17:13)
[2017-08-12] MEDS: Enoxaparin 40 mg Syringe SC SCH (17:16)
[2017-08-13] MEDS: Dextrose 5%/Lactated Ringer's 1,000 ML IV SCH ×2 (00:31→07:27)
[2017-08-13] MEDS: Piperacillin/Tazobact 3.375 GM in Sodium Chloride 0.9% 100 ML IVPB SCH ×4 (04:59→21:30)
[2017-08-13 06:25] LABS: HEMOGLOBIN 11.2 g/dL (12.0-16.0); MEAN CELL VOLUME 78.7 fl (81.0-99.0); RBC 4.29 Mil/uL (3.80-5.20); RED CELL DISTRIBUTION WIDTH 14.6 % (11.5-14.5); WHITE BLOOD COUNT 3.9 K/uL (4.8-10.8)
[2017-08-13 06:47] LABS: ALB/GLOB RATIO 1.2 (1.0-2.1); ALBUMIN 3.8 g/dL (3.5-5.0); ALT/SGPT 883 U/L (9-52); AMYLASE 66 U/L (30-110); AST/SGOT 376 U/L (14-36); BLOOD UREA NITROGEN 3 mg/dl (7-17); CALCIUM 9.1 mg/dL (8.4-10.2); GFR AFRICAN-AMERICAN > 60; GFR NON-AFRICAN AMERICAN > 60; LIPASE 285 U/L (23-300)
--- NOTE | 2017-08-13 07:57 | CP.PCM.PN ---
<Sohan Curtis - Last Filed: 08/13/17 12:05> Subjective - Date & Time of Evaluation Date of Evaluation: 08/13/17 Time of Evaluation: 07:15 - Subjective Subjective: PGY4 GI Follow-up Pt seen and examined bedside Denies any abd pain tolerated liquid diet +BM ROS:10 point ROS is conducted, neg other than above Objective - Vital Signs/Intake and Output Vital Signs (last 24 hours): Temp Pulse Resp BP Pulse Ox 98.6 F 71 19 116/69 97 08/13/17 00:05 08/13/17 00:05 08/13/17 00:05 08/13/17 00:05 08/13/17 00:05 - Medications Medications: Current Medications Enoxaparin Sodium (Lovenox) 40 mg SC DAILY [facility] PRN Reason: Protocol Last Admin: 08/12/17 17:16 Dose: Not Given Piperacillin Sod/Tazobactam (Sod 3.375 gm/ Sodium Chloride) 100 mls @ 100 mls/ hr IVPB Q6 [facility] PRN Reason: Protocol Last Admin: 08/13/17 04:59 Dose: 100 mls/hr Dextrose/Lactated Ringer's (Dextrose 5%/Lactated Ringer's) 1,000 mls @ 125 mls/ hr IV .Q8H [facility] Stop: 08/13/17 15:13 Last Admin: 08/13/17 07:27 Dose: Not Given Morphine Sulfate (Morphine) 2 mg IVP Q4 PRN PRN Reason: Pain, moderate (4-7) Last Admin: 08/12/17 07:41 Dose: 2 mg Ondansetron HCl (Zofran Inj) 4 mg IVP Q4 PRN PRN Reason: Nausea/Vomiting Last Admin: 08/13/17 00:20 Dose: 4 mg Pantoprazole Sodium (Protonix Inj) 40 mg IVP DAILY [facility] Last Admin: 08/12/17 11:26 Dose: 40 mg - Labs Labs: 08/13/17 05:40 08/13/17 05:40 - Constitutional Appears: Well, No Acute Distress - Head Exam Head Exam: ATRAUMATIC, NORMOCEPHALIC - Eye Exam Eye Exam: Normal appearance - ENT Exam ENT Exam: Mucous Membranes Moist - Respiratory Exam Respiratory Exam: Clear to Ausculation Bilateral, NORMAL BREATHING PATTERN. absent: Rales, Rhonchi, Wheezes, Respiratory Distress - Cardiovascular Exam Cardiovascular Exam: REGULAR RHYTHM, +S1, +S2 - GI/Abdominal Exam GI & Abdominal Exam: Soft, Normal Bowel Sounds. absent: Guarding, Rigid, Tenderness - Extremities Exam Extremities Exam: absent: Joint Swelling, Pedal Edema - Neurological Exam Neurological Exam: Alert, Awake, Oriented x3 - Psychiatric Exam Psychiatric exam: Normal Affect, Normal Mood - Skin Skin Exam: Dry, Intact, Normal Color, Warm Assessment and Plan - Assessment and Plan (Free Text) Assessment: Mckayla Kamara is a 27F s/p recent who presents to the ER with abd pain, s/p ERCP POD #1 stone extraction, sphincterotomy, and ballon sweep with sludge and possible PUS Possible Gangrenous Cholecystitis Choledocolithiasis Elevated LFTs likely 2/2 above Plan: -for lap patel today -keeo NPO for surgery -abd improving -LFTs improving -No more plan for additional GI intervention -Will sign off -please reconsult if needed again D/W Dr. Joy <Rufino WALKER,[facility] - Last Filed: 08/13/17 14:32> Objective - Vital Signs/Intake and Output Vital Signs (last 24 hours): Temp Pulse Resp BP Pulse Ox 98.4 F 69 20 125/80 99 08/13/17 08:26 08/13/17 08:26 08/13/17 08:26 08/13/17 08:26 08/13/17 08:26 Intake and Output: 08/13/17 08/13/17 06:59 18:59 Intake Total 1000 Balance 1000 - Medications Medications: Current Medications Enoxaparin Sodium (Lovenox) 40 mg SC DAILY [facility] PRN Reason: Protocol Last Admin: 08/12/17 17:16 Dose: Not Given Piperacillin Sod/Tazobactam (Sod 3.375 gm/ Sodium Chloride) 100 mls @ 100 mls/ hr IVPB Q6 [facility] PRN Reason: Protocol Last Admin: 08/13/17 09:52 Dose: 100 mls/hr Dextrose/Lactated Ringer's (Dextrose 5%/Lactated Ringer's) 1,000 mls @ 125 mls/ hr IV .Q8H [facility] Stop: 08/13/17 15:13 Last Admin: 08/13/17 07:27 Dose: Not Given Morphine Sulfate (Morphine) 2 mg IVP Q4 PRN PRN Reason: Pain, moderate (4-7) Last Admin: 08/12/17 07:41 Dose: 2 mg Ondansetron HCl (Zofran Inj) 4 mg IVP Q4 PRN PRN Reason: Nausea/Vomiting Last Admin: 08/13/17 00:20 Dose: 4 mg Pantoprazole Sodium (Protonix Inj) 40 mg IVP DAILY [facility] Last Admin: 08/13/17 09:30 Dose: 40 mg - Labs Labs: 08/13/17 05:40 08/13/17 05:40 Attending/Attestation - Attestation I have personally seen and examined this patient.: Yes I have fully participated in the care of the patient.: Yes I have reviewed all pertinent clinical information, including history, physical exam and plan: Yes Notes (Text): 08/13/17 14:31 Patient seen with GI fellow. This is a 27F 12 week post who presents to the ER with choledocholithiasis, s/p ERCP POD #1 stone extraction, sphincterotomy, and balloon sweep with sludge and possible pus. LFT down trending today. Denies abdominal pain. Scheduled for CCy today with surgery. Rest of plan as per surgical service
--- NOTE | 2017-08-13 09:07 | CP.PCM.PN ---
Subjective - Date & Time of Evaluation Date of Evaluation: 08/13/17 Time of Evaluation: 09:47 - Subjective Subjective: Patient seen and examined at bedside with attending Dr. Mckeon. Awake, alert, reports she tolerated jello last night, has been NPO since midnight for scheduled lap-patel today. Denies abdominal pain, nausea or vomiting. Objective - Vital Signs/Intake and Output Vital Signs (last 24 hours): Temp Pulse Resp BP Pulse Ox 98.4 F 69 20 125/80 99 08/13/17 08:26 08/13/17 08:26 08/13/17 08:26 08/13/17 08:26 08/13/17 08:26 - Medications Medications: Current Medications Enoxaparin Sodium (Lovenox) 40 mg SC DAILY [facility] PRN Reason: Protocol Last Admin: 08/12/17 17:16 Dose: Not Given Piperacillin Sod/Tazobactam (Sod 3.375 gm/ Sodium Chloride) 100 mls @ 100 mls/ hr IVPB Q6 [facility] PRN Reason: Protocol Last Admin: 08/13/17 04:59 Dose: 100 mls/hr Dextrose/Lactated Ringer's (Dextrose 5%/Lactated Ringer's) 1,000 mls @ 125 mls/ hr IV .Q8H [facility] Stop: 08/13/17 15:13 Last Admin: 08/13/17 07:27 Dose: Not Given Morphine Sulfate (Morphine) 2 mg IVP Q4 PRN PRN Reason: Pain, moderate (4-7) Last Admin: 08/12/17 07:41 Dose: 2 mg Ondansetron HCl (Zofran Inj) 4 mg IVP Q4 PRN PRN Reason: Nausea/Vomiting Last Admin: 08/13/17 00:20 Dose: 4 mg Pantoprazole Sodium (Protonix Inj) 40 mg IVP DAILY [facility] Last Admin: 08/12/17 11:26 Dose: 40 mg - Labs Labs: 08/13/17 05:40 08/13/17 05:40 - Constitutional Appears: Non-toxic - Head Exam Head Exam: ATRAUMATIC, NORMOCEPHALIC - Eye Exam Eye Exam: EOMI - ENT Exam ENT Exam: Mucous Membranes Moist - Neck Exam Neck Exam: Full ROM - Respiratory Exam Respiratory Exam: NORMAL BREATHING PATTERN - Cardiovascular Exam Cardiovascular Exam: REGULAR RHYTHM, +S1, +S2 - GI/Abdominal Exam GI & Abdominal Exam: Soft, Normal Bowel Sounds. absent: Tenderness - Extremities Exam Extremities Exam: Full ROM. absent: Pedal Edema - Neurological Exam Neurological Exam: Alert, Awake, CN II-XII Intact, Oriented x3 - Psychiatric Exam Psychiatric exam: Normal Affect, Normal Mood - Skin Skin Exam: Dry, Normal Color, Warm Assessment and Plan - Assessment and Plan (Free Text) Assessment: 27 yr old F admitted for Abd CT and MRCP findings worrisome for gangrenous cholecystitis, and CBD choledocholithiasis now POD # 1 s/p ERCP with sphincterotomy and extraction of CBD stone and sludge/pus. 1. Gangrenous cholecystitis and choledocholithiasis -POD # 1 s/p ERCP with sphincterotomy and extraction of CBD stone and sludge/ pus. -Abd CT findings of and MRCP findings worrisome for gangrenous cholecystitis, distal CBD 5mm choledocholithiasis causing mild extrahepatic and central intrahepatic biliary dilatation -no leukocytosis, AST 376, ALT 883, alk phos 348 -NPO for scheduled lap patel today -IV antibiotics -Zosyn 3.375 IV Q6, IV fluids, Pantoprazole IV, Zofran IV PRN, pain management -GI consult appreciated: will follow recommendations: watch for pancreatitis, bleeding, perforation and cholangitis -Surgery consult appreciated: lap patel today 2. DVT prophylaxis -hold Lovenox 40mg SC QD for surgery, resume tomorrow -SCD's PRN
[2017-08-13] MEDS: Lactated Ringer's 1,000 ML IV SCH ×2 (10:41→16:30)
[2017-08-13] MEDS ORDERED: Bupivacaine 0.5% Inj(30mL) ONE (10:41)
[2017-08-13] MEDS ORDERED: Lidocaine 1% Inj (20ml) ONE (10:41)
[2017-08-13] MEDS ORDERED: Succinylcholine 200 mg/10 ml Inj IV ONE (11:50)
[2017-08-13] MEDS ORDERED: Propofol 10 mg/ml Inj (20 ML) ONE (11:50)
[2017-08-13] MEDS ORDERED: Rocuronium 10 mg/ml (5 ml) ONE (11:50)
[2017-08-13] MEDS ORDERED: Midazolam 2 MG/2 ML VIAL ONE (11:50)
[2017-08-13] MEDS ORDERED: Lactated Ringer's 1,000 ML IV ONE ×4 (13:20→16:15)
--- NOTE | 2017-08-13 14:36 | PCM.SURG1 ---
Surgeon's Initial Post Op Note - Surgeon's Notes Surgeon: Dr Mercedes [employer] Co[employer] Machine: Dr Bhardwaj PGY2 Type of Anesthesia: General Endo Pre-Operative Diagnosis: cholecystitis, choledocholithiasis s/p ERCP Operative Findings: cholecystitis Post-Operative Diagnosis: as above Operation Performed: laparoscopic cholecystectomy Specimen/Specimens Removed: gallbladder. node of [place] Estimated Blood Loss: EBL {In ML}: 20 Blood Products Given: N/A Drains Used: No Drains Post-Op Condition: Good Date of Surgery/Procedure: 08/13/17 Time of Surgery/Procedure: 14:48
[2017-08-13] MEDS ORDERED: HYDROmorphone 0.5 mg/0.5 ml ISec ONE (14:47)
[2017-08-13] MEDS: HYDROmorphone 0.5 mg/0.5 ml ISec IVP PRN ×4 (14:50→15:35)
[2017-08-13] MEDS ORDERED: Piperacillin/Tazobact 3.375 gm Inj IVPB ONE (16:00)
[2017-08-13] MEDS ORDERED: Artificial Tears Opht Soln OU PRN (17:10)
[2017-08-13] MEDS: Morphine 4 MG/ML VIAL IVP PRN (18:25)
[2017-08-13] MEDS: Oxycodone/Acetaminophen 5/325 mg Tab PO PRN (19:24)
[2017-08-14] MEDS: Lactated Ringer's 1,000 ML IV SCH ×4 (00:30→20:45)
[2017-08-14] MEDS: Morphine 4 MG/ML VIAL IVP PRN ×4 (00:38→19:42)
[2017-08-14] MEDS: Piperacillin/Tazobact 3.375 GM in Sodium Chloride 0.9% 100 ML IVPB SCH ×4 (03:01→21:43)
[2017-08-14 06:24] LABS: HEMOGLOBIN 10.5 g/dL (12.0-16.0); MEAN CELL VOLUME 79.8 fl (81.0-99.0); MEAN CORPUSCULAR HGB CONC 32.5 g/dL (33.0-37.0); RBC 4.05 Mil/uL (3.80-5.20); RED CELL DISTRIBUTION WIDTH 14.8 % (11.5-14.5); WHITE BLOOD COUNT 6.9 K/uL (4.8-10.8)
--- NOTE | 2017-08-14 07:10 | CP.PCM.PN ---
Subjective - Date & Time of Evaluation Date of Evaluation: 08/14/17 Time of Evaluation: 07:08 - Subjective Subjective: General Surgery: Dr Mercedes Pt S&E. Reports itchy eyes after surgery. Mild nausea when she tried to eat last night. Otherwise no complaints. Pain well controlled. Tolerating liquids. Will attempt to eat this morning. OOB and ambulating. Objective - Vital Signs/Intake and Output Vital Signs (last 24 hours): Temp Pulse Resp BP Pulse Ox 99 F 86 18 105/66 96 08/14/17 00:12 08/14/17 00:12 08/14/17 00:12 08/14/17 00:12 08/14/17 00:12 - Medications Medications: Current Medications Artificial Tears (Artificial Tears) 2 drop OU Q4 PRN PRN Reason: Dry eyes Last Admin: 08/13/17 19:30 Dose: 2 drop Enoxaparin Sodium (Lovenox) 40 mg SC DAILY [facility] PRN Reason: Protocol Last Admin: 08/12/17 17:16 Dose: Not Given Piperacillin Sod/Tazobactam (Sod 3.375 gm/ Sodium Chloride) 100 mls @ 100 mls/ hr IVPB Q6 [facility] PRN Reason: Protocol Last Admin: 08/14/17 03:01 Dose: 100 mls/hr Lactated Ringer's (Lactated Ringer's) 1,000 mls @ 100 mls/hr IV .Q10H [facility] Last Admin: 08/14/17 03:03 Dose: 100 mls/hr Morphine Sulfate (Morphine) 2 mg IVP Q4 PRN PRN Reason: Pain, moderate (4-7) Last Admin: 08/14/17 06:08 Dose: 2 mg Ondansetron HCl (Zofran Inj) 4 mg IVP Q4 PRN PRN Reason: Nausea/Vomiting Last Admin: 08/13/17 20:31 Dose: 4 mg Oxycodone/Acetaminophen (Percocet 5/325 Mg Tab) 1 tab PO Q4 PRN PRN Reason: Pain, moderate (4-7) Stop: 08/16/17 14:50 Last Admin: 08/13/17 19:24 Dose: 1 tab Pantoprazole Sodium (Protonix Inj) 40 mg IVP DAILY [facility] Last Admin: 08/13/17 09:30 Dose: 40 mg - Labs Labs: 08/14/17 05:40 08/13/17 05:40 - Constitutional Appears: Non-toxic, No Acute Distress - Eye Exam Eye Exam: Normal appearance - ENT Exam ENT Exam: Mucous Membranes Dry - Respiratory Exam Respiratory Exam: absent: Accessory Muscle Use, Respiratory Distress - Cardiovascular Exam Cardiovascular Exam: REGULAR RHYTHM - GI/Abdominal Exam GI & Abdominal Exam: Soft, Tenderness (post-op and appropriate). absent: Distended, Firm, Guarding, Rigid Additional comments: dressing c/d/i - Neurological Exam Neurological Exam: Alert, Awake, Oriented x3 - Psychiatric Exam Psychiatric exam: Normal Affect, Normal Mood - Skin Skin Exam: Normal Color, Warm Assessment and Plan - Assessment and Plan (Free Text) Assessment: 27F POD#1 s/p laparoscopic cholecystectomy Plan: tolerated procedure well K+ replaced this morning IS and OOB and ambulate clear for d/c if tolerates diet this morning f/u in [address] Mago Bhardwaj, PGY3
[2017-08-14 07:11] LABS: ALB/GLOB RATIO 1.3 (1.0-2.1); ALBUMIN 3.5 g/dL (3.5-5.0); ALT/SGPT 613 U/L (9-52); AST/SGOT 183 U/L (14-36); BLOOD UREA NITROGEN 3 mg/dl (7-17); CALCIUM 8.7 mg/dL (8.4-10.2); GFR AFRICAN-AMERICAN > 60; GFR NON-AFRICAN AMERICAN > 60
[2017-08-14] MEDS ORDERED: Potassium Chloride 20 mEq ER Tab PO ONE (07:20)
[2017-08-14] MEDS: Enoxaparin 40 mg Syringe SC SCH ×2 (09:00→09:05)
--- NOTE | 2017-08-14 15:39 | RAD ---
PROCEDURE: ERCP HISTORY: ERCP COMPARISON: None TECHNIQUE: Standard protocol for this study/examination. FINDINGS: Total fluoroscopic time (continuous mode) utilized during the procedure: 39.7 seconds. Total exam DLP: (mGy): 5.51 IMPRESSION: Less than 1 hr fluoroscopic time utilized during performance of the procedure. Submitted images from the current procedure: 2.0.
[2017-08-14 16:27] VITALS: RESP 18
--- NOTE | 2017-08-15 02:32 | CP.PCM.PN ---
Subjective - Date & Time of Evaluation Date of Evaluation: 08/14/17 Time of Evaluation: 09:50 - Subjective Subjective: Patient seen and examined at bedside with attending-Dr. Mckeon. Reports nausea this AM and cannot tolerate PO diet. Abdominal pain remains. Denies chest pain, SOB, weakness or dizziness Objective - Vital Signs/Intake and Output Vital Signs (last 24 hours): Temp Pulse Resp BP Pulse Ox 98.9 F 82 18 117/75 95 08/15/17 00:29 08/15/17 00:29 08/15/17 00:29 08/15/17 00:29 08/15/17 00:29 - Medications Medications: Current Medications Artificial Tears (Artificial Tears) 2 drop OU Q4 PRN PRN Reason: Dry eyes Last Admin: 08/13/17 19:30 Dose: 2 drop Docusate Sodium (Colace) 100 mg PO BID [facility] Last Admin: 08/14/17 16:35 Dose: 100 mg Enoxaparin Sodium (Lovenox) 40 mg SC DAILY [facility] PRN Reason: Protocol Last Admin: 08/14/17 09:05 Dose: Not Given Piperacillin Sod/Tazobactam (Sod 3.375 gm/ Sodium Chloride) 100 mls @ 100 mls/ hr IVPB Q6 [facility] PRN Reason: Protocol Last Admin: 08/14/17 21:43 Dose: 100 mls/hr Lactated Ringer's (Lactated Ringer's) 1,000 mls @ 100 mls/hr IV .Q10H [facility] Last Admin: 08/14/17 20:45 Dose: Not Given Morphine Sulfate (Morphine) 2 mg IVP Q4 PRN PRN Reason: Pain, moderate (4-7) Last Admin: 08/14/17 19:42 Dose: 2 mg Ondansetron HCl (Zofran Inj) 4 mg IVP Q4 PRN PRN Reason: Nausea/Vomiting Last Admin: 08/13/17 20:31 Dose: 4 mg Oxycodone/Acetaminophen (Percocet 5/325 Mg Tab) 1 tab PO Q4 PRN PRN Reason: Pain, moderate (4-7) Stop: 08/16/17 14:50 Last Admin: 08/13/17 19:24 Dose: 1 tab Pantoprazole Sodium (Protonix Inj) 40 mg IVP DAILY [facility] Last Admin: 08/14/17 08:59 Dose: 40 mg - Labs Labs: 08/14/17 05:40 08/14/17 05:40 - Constitutional Appears: Toxic - Head Exam Head Exam: ATRAUMATIC, NORMOCEPHALIC - Eye Exam Eye Exam: EOMI - ENT Exam ENT Exam: Mucous Membranes Dry, Mucous Membranes Moist - Neck Exam Neck Exam: Full ROM, Lymphadenopathy - Respiratory Exam Respiratory Exam: NORMAL BREATHING PATTERN - Cardiovascular Exam Cardiovascular Exam: REGULAR RHYTHM, +S1, +S2 - GI/Abdominal Exam GI & Abdominal Exam: Soft, Tenderness (to palpation), Normal Bowel Sounds - Exam Exam: NORMAL INSPECTION - Extremities Exam Extremities Exam: Full ROM, Tenderness. absent: Calf Tenderness, Pedal Edema - Back Exam Back Exam: Full ROM - Neurological Exam Neurological Exam: Alert, Awake, CN II-XII Intact, Oriented x3 - Psychiatric Exam Psychiatric exam: Normal Affect, Normal Mood - Skin Skin Exam: Dry, Intact, Warm Assessment and Plan - Assessment and Plan (Free Text) Assessment: 27 yr old F admitted for gangrenous cholecystitis, and CBD choledocholithiasis now POD # 2 s/p ERCP with sphincterotomy and extraction of CBD stone and sludge/ pus. May send to TCU for rehabilitation. 1. Gangrenous cholecystitis and choledocholithiasis -POD # 1 s/p laparoscopic cholecystecomy -POD # 2 s/p ERCP with sphincterotomy and extraction of CBD stone and sludge/ pus. -Abd CT findings of and MRCP findings worrisome for gangrenous cholecystitis, distal CBD 5mm choledocholithiasis causing mild extrahepatic and central intrahepatic biliary dilatation -no leukocytosis, AST 376, ALT 883, alk phos 348 -IV antibiotics -Zosyn 3.375 IV Q6, IV fluids, Pantoprazole IV, Zofran IV PRN, pain management -GI consult appreciated: will follow recommendations: watch for pancreatitis, bleeding, perforation and cholangitis -Surgery consult appreciated: lap patel 2. DVT prophylaxis -Lovenox 40mg SC QD -SCD's PRN
[2017-08-15] MEDS: Piperacillin/Tazobact 3.375 GM in Sodium Chloride 0.9% 100 ML IVPB SCH ×2 (03:35→08:59)
[2017-08-15 08:23] VITALS: BP 127/80; PULSE 87; TEMP 99.2; O2SAT 97
[2017-08-15] MEDS: Lactated Ringer's 1,000 ML IV SCH (08:51)
[2017-08-15] MEDS: Oxycodone/Acetaminophen 5/325 mg Tab PO PRN (10:39)
[2017-08-15] MEDS: Enoxaparin 40 mg Syringe SC SCH (11:01)
--- NOTE | 2017-08-17 03:43 | OP ---
PROCEDURE DATE: 08/13/2017 PREOPERATIVE DIAGNOSIS: Gallstone pancreatitis. POSTOPERATIVE DIAGNOSES: 1. Gallstone pancreatitis. 2. Chronic cholecystitis and cholelithiasis. 3. Post infectious adhesions. PROCEDURES DONE: 1. Laparoscopic cholecystectomy. 2. Laparoscopic extensive lysis of adhesions. SURGEON: Kenny Mercedes MD. PROCUREMENT CLERK: Celso Bhardwaj, PGY-2 resident. TYPE OF ANESTHESIA: General endotracheal tube anesthesia. ESTIMATED BLOOD LOSS: Around 50 mL. DRAINS: None. PATHOLOGY: Gallbladder with gallstone sent for pathology. COMPLICATIONS: None. INTRAOPERATIVE FINDINGS: The patient had extensive postinflammatory chronic adhesion of the gallbladder to the surrounding structure and there was extensive peritoneal adhesions with chronic cholecystitis in the Calot's triangle. Patient had normal than larger size of cystic duct. DESCRIPTION OF PROCEDURE: On intraoperative steps, this is a 27-year-old female who is and patient had a diagnosis of gallstone pancreatitis with chronic cholecystis and after the ERCP, patient was consented for laparoscopic cholecystectomy, possible open. Brought to the OR, placed supine on the operating table. After induction of the anesthesia, the abdomen was prepped and draped in the usual sterile fashion. The supraumbilical transverse incision was made after incising skin and subcutaneous tissue. The fascia was incised and Khang port was placed. Pneumo was created. A 12-mm port was placed in the midline below costal margin and two 5-mm ports were placed in the midclavicular and anterior axillary line. After that, grasper and dissector were introduced and the gallbladder was identified. Gallbladder appeared to be extremely thick and edematous and patient had extensive inflammation of the gallbladder as well as the Calot triangle. First, the gallbladder was retracted cranially and adhesiolysis of duodenum to the infundibular area as well as the Calot triangle was done. Lateral and medial dissection was done of the peritoneal leaflet and due to the chronic adhesion, extensive lysis of adhesion was done in order to identify all the structures. Cystic duct and cystic artery was identified and cystic duct was from the cystic artery and now the top down approach was done and after proper mobilization of the infundibulum, the cystic duct was stapled due to the large size and cystic artery was clipped at three places and cut in between two clips near the gallbladder and the gallbladder was dissected free from the gallbladder fossa, taken in an EndoCatch bag, taken out through the umbilical port site, and sent to the table for the pathology. There was proper hemostasis in each and every part of the procedure. During the dissection of the gallbladder, the gallbladder wall opened up and the gallbladder content was suctioned out. All the stone was taken out and after proper suction and irrigation and after proper hemostasis, all the ports were taken out under vision. Pneumo was deflated. Gallbladder sent to the table for the pathology. Umbilical port site was closed in two layers, fascia with 0 Vicryl interrupted sutures, skin with 4-0 Monocryl, and dry sterile dressing was applied. Patient tolerated the procedure well. Count of instruments were correct. There was no apparent complication. Kenny Mercedes MD
== END 2017-08-15 01:00 | disposition home or self-care (01) | DRG 417 ==
LOC: H.ER 00:02 → H.ERHOLD 06:50 → H.MEDSURG1 09:41
PROVIDERS: ADMIT Family Medicine; ATTEND Family Medicine
PROC: 0FC98ZZ Extirpation of Matter from Common Bile Duct, Via Natural or Artificial Opening Endoscopic (ICD-10-PCS; 2017-08-12)
PROC: 0FT44ZZ Resection of Gallbladder, Percutaneous Endoscopic Approach (ICD-10-PCS; principal; 2017-08-13 11:30)
DX: K80.64 Calculus of gallbladder and bile duct with chronic cholecystitis without obstruction (principal); K85.10 Biliary acute pancreatitis without necrosis or infection; G89.29 Other chronic pain; K66.0 Peritoneal adhesions (postprocedural) (postinfection); Z87.891 Personal history of nicotine dependence; Z90.49 Acquired absence of other specified parts of digestive tract